=== PATIENT | male | born 1970 | race Caucasian/White ===

== ENCOUNTER 2018-02-11 14:34 | Emergency (ER) | payer OTHER ==
[2018-02-11 14:42] VITALS: TEMP 97.9; BMI 31.3
--- NOTE | 2018-02-11 14:53 | PDOC ---
History of Present Illness - General History Source: Patient, Care Provider (Dr. Palma at bedside) Exam Limitations: No Limitations - History of Present Illness Initial Comments: 02/11/18 14:43 The patient is a 47M with no PMH who presents to the ER after having a syncopal episode during a stress test. The patient states that he has had worsening dyspnea on exertion, for the past 6 months. It initially began as a cough and he was worked up by multiple different specialists with no avail. He states that over the past month, he's noticed b/l LE swelling and worsening of his dyspnea on exertion. He states that he also feels a bloating sensation in his upper abdomen every time he exerts himself and feels SOB. He denies any symptoms currently including fevers, chill, nausea, vomiting, CP, SOB. <Nicho Durbin - Last Filed: 02/11/18 16:20> <Vipin Donohue - Last Filed: 02/11/18 16:26> - General Chief Complaint: Shortness of Breath Stated Complaint: SENT BY PCP Time Seen by Provider: 02/11/18 14:37 Past History - Past Medical History COPD: No - Suicide/Smoking/Psychosocial Hx Smoking History: Never smoked <Nicho Durbin - Last Filed: 02/11/18 16:20> <Vipin Donohue - Last Filed: 02/11/18 16:26> - Past Medical History Allergies/Adverse Reactions: Allergies Allergy/AdvReac Type Severity Reaction Status Date / Time No Known Allergies Allergy Verified 02/11/18 14:38 Home Medications: Ambulatory Orders NK [No Known Home Medication] 02/11/18 Review of Systems - Review of Systems Able to Perform ROS?: Yes Comments:: 02/11/18 14:53 GENERAL/CONSTITUTIONAL: No fever or chills. No weakness. HEAD, EYES, EARS, NOSE AND THROAT: No change in vision. No ear pain or discharge. No sore throat. CARDIOVASCULAR: No chest pain, palpitations, or lightheadedness. RESPIRATORY: Positive for CALABRESE and prior cough. No wheezing or hemoptysis. GASTROINTESTINAL: Positive for bloating. No nausea, vomiting, diarrhea, constipation, or abdominal pain. GENITOURINARY: No dysuria, frequency, hematuria, or change in urination. MUSCULOSKELETAL: No joint or muscle swelling or pain. No neck or back pain. SKIN: No rash or lesions. NEUROLOGIC: No headache, numbness, tingling, focal weakness, loss of consciousness, or change in strength/sensation. ENDOCRINE: No increased thirst. No abnormal weight change. HEMATOLOGIC/LYMPHATIC: No anemia, easy bleeding, or history of blood clots. ALLERGIC/IMMUNOLOGIC: No hives or skin allergy. Is the patient limited Moldovan proficient: No <Nicho Durbin - Last Filed: 02/11/18 16:20> *Physical Exam - Vital Signs Last Vital Signs Temp Pulse Resp BP Pulse Ox 97.9 F 100 H 18 139/90 99 02/11/18 14:38 02/11/18 14:38 02/11/18 14:38 02/11/18 14:38 02/11/18 14:38 - Physical Exam Comments: 02/11/18 14:56 GENERAL: Well developed, well nourished. Awake and alert. No acute distress. HEENT: Normocephalic, atraumatic. Hearing grossly normal. Moist mucous membranes. PERRLA, EOMI. No conjunctival pallor. Sclera are non-icteric. NECK: Supple. Full ROM. CARDIOVASCULAR: Regular rate and rhythm. No murmurs, rubs, or gallops. PULMONARY: No evidence of respiratory distress. Lungs clear to auscultation bilaterally. No wheezing, rales or rhonchi. ABDOMINAL: Soft. Non-tender. Non-distended. No rebound or guarding. GENITOURINARY: No CVA tenderness bilaterally. MUSCULOSKELETAL: Normal range of motion at all joints. No bony deformities or tenderness. EXTREMITIES: No cyanosis. No clubbing. 3+ pitting edema in b/l LE. No calf tenderness or swelling. SKIN: Warm and dry. Normal capillary refill. No rashes. No jaundice. NEUROLOGICAL: Alert, awake, appropriate. Cranial nerves 2-12 intact. Normal speech. Gait is normal without ataxia. PSYCHIATRIC: Cooperative. Good eye contact. Appropriate mood and affect. <Nicho Durbin - Last Filed: 02/11/18 16:20> - Vital Signs Last Vital Signs Temp Pulse Resp BP Pulse Ox 97.9 F 96 H 20 124/90 96 02/11/18 14:38 02/11/18 15:23 02/11/18 15:23 02/11/18 15:23 02/11/18 15:23 <Vipin Donohue - Last Filed: 02/11/18 16:26> Heart Score/ECG Review #1 General ECG Interpretation: Sinus Rhythm, Normal Rate, Normal Intervals, No acute ischemic changes 02/11/18 14:57 NSR vent rate 100 SD 186 QRS 86 QTc 495 Poor R wave progression R axis deviation Sub 1mm EFREM in V2-V4 <Nicho Durbin - Last Filed: 02/11/18 16:20> ED Treatment Course - LABORATORY CBC & Chemistry Diagram: 02/11/18 15:05 02/11/18 15:05 - RADIOLOGY Radiology Studies Ordered: Category Date Time Status CHEST X-RAY PORTABLE* [RAD] Stat Radiology 02/11/18 14:38 Ordered <Nicho Durbin - Last Filed: 02/11/18 16:20> - LABORATORY CBC & Chemistry Diagram: 02/11/18 15:05 02/11/18 15:05 - ADDITIONAL ORDERS Additional order review: Laboratory Results 02/11/18 15:05 Sodium 141 Potassium 4.9 Chloride 106 Carbon Dioxide 23 Anion Gap 12 BUN 26 H Creatinine 2.0 H Creat Clearance w eGFR 35.69 Random Glucose 95 Calcium 9.1 Total Bilirubin 0.9 AST 24 ALT 40 Alkaline Phosphatase 65 Creatine Kinase 273 Troponin I 0.15 H B-Natriuretic Peptide 78644.56 H Total Protein 6.6 Albumin 4.1 02/11/18 15:05 RBC 4.50 MCV 89.0 MCHC 32.1 RDW 15.0 MPV 9.6 Neutrophils % 88.9 H Lymphocytes % 5.2 L Monocytes % 5.2 Eosinophils % 0.5 Basophils % 0.2 - Medications Given in the ED: ED Medications Discontinued Medications Generic Name Dose Route Start Last Admin Trade Name Freq PRN Reason Stop Dose Admin Aspirin 325 mg 02/11/18 15:19 02/11/18 15:34 Asa - PO 02/11/18 15:20 325 mg ONCE ONE Administration Atorvastatin Calcium 80 mg 02/11/18 15:19 02/11/18 15:34 Lipitor - PO 02/11/18 15:20 80 mg ONCE ONE Administration <Vipin Donohue - Last Filed: 02/11/18 16:26> Medical Decision Making - Medical Decision Making 02/11/18 14:58 The patient is a 47M with no PMH who presents to the ER after having a syncopal episode during a stress test. Dr. Palma is at bedside and states that he's had an echo yesterday which showed decreased EF, enlarged RV with hypertrophic LV and mitral valve regurgitation. Pending labs and imaging with t/f to [facility] per Dr. Palma. 02/11/18 16:13 Labs significant [place] trop [place] 0.15 [place] [address]. Cr of 2.0 indicating heart failure with elevated troponin and DANDY. Transfer center aware of patient, pending call back from [employer] 02/11/18 16:20 I have d/w Dr. Aguilera, [facility] fellow, who agrees for transfer. Accepting physician is Dr. Thompson, plate maker. Will place transfer orders now. <Nicho Durbin - Last Filed: 02/11/18 16:20> *DC/Admit/Observation/Transfer - Transfer to Acute Care Facility Receiving Facility: [facility]. Accepting Physician:: Dr. Thompson <Nicho Durbin - Last Filed: 02/11/18 16:20> - Transfer to Acute Care Facility Accepting Physician:: Dr. Cai/Donna <Vipin Donohue - Last Filed: 02/11/18 16:26> Diagnosis at time of Disposition: NSTEMI (non-ST elevated myocardial infarction) - Discharge Dispostion Disposition: TRANSFER ACUTE CARE/OTHER HOSP Condition at time of disposition: Guarded - Referrals Referrals: Tre Mckeon MD [Primary Care Provider] - - Patient Instructions - Post Discharge Activity
[2018-02-11 15:15] LABS: BASO % 0.2 % (0-2.0); EOS % 0.5 % (0-4.5); HEMOGLOBIN 12.8 GM/dL (11.7-16.9); LYMPH % 5.2 % (8-40); MCH 28.6 pg (25.7-33.7); MCHC 32.1 g/dl (32.0-35.9); MEAN PLT VOLUME 9.6 fl (7.5-11.1); MONO % 5.2 % (3.8-10.2); NEUT % 88.9 % (42.8-82.8); PLATELET COUNT 249 K/MM3 (134-434); WHITE BLOOD COUNT 12.1 K/mm3 (4.0-10.0)
[2018-02-11] MEDS ORDERED: ASPIRIN 325 MG TABLET PO ONE (15:19)
[2018-02-11] MEDS ORDERED: ATORVASTATIN CA 80 MG TABLET (FP) PO ONE (15:19)
[2018-02-11] MEDS ORDERED: HEPARIN NA (PORCINE) 5,000 UNITS/ML 1ML VIAL IVPUSH PRN ×2 (15:19→15:24)
[2018-02-11] MEDS ORDERED: ASPIRIN 325 MG TABLET ONE (15:24)
[2018-02-11] MEDS ORDERED: HEPARIN NA (PORCINE) 5,000 UNITS/ML 1ML VIAL ONE (15:25)
[2018-02-11] MEDS ORDERED: ATORVASTATIN CA 80 MG TABLET (FP) ONE (15:25)
--- NOTE | 2018-02-11 15:26 | PDOC ---
Attending Attestation - Resident Resident Name: [email or web address] - ED Attending Attestation I have performed the following: I have examined & evaluated the patient, The case was reviewed & discussed with the resident, I agree w/resident's findings & plan - HPI HPI: 02/11/18 15:18 47-year-old male with no routine primary care follow-up and no diagnosed past medical history brought in from cardiology after syncope during stress test. Patient has had 6 months of progressive cough, over the last 2-3 months has noted exertional chest tightness and lightheadedness and fatigue. Fevers referred to Dr. Palma, who performed an expedited in office echocardiogram showing decreased EF, LVH with mitral regurg, pulmonary hypertension with right ventricular dilatation. A stress test was expedited and after 1 minute of exercise today he lost consciousness. now complaining of some chest tightness, no injury with the syncope. - Physicial Exam PE: 02/11/18 15:26 Placed immediately on monitor, vitals as noted Seen at bedside with Dr. Palma of cardiology Alert, conversant, no acute distress Heart is regular with split S2, systolic ejection murmur Lungs are clear 2-3+ pitting edema bilaterally with good peripheral pulses - Critical Care Time Total Critical Care Time: 50 Critical Care Statement: The care of this patient involved high complexity decision making to prevent further life threatening deterioration of the patient 's condition and/or to evaluate & treat vital organ system(s) failure or risk of failure. - Medical Decision Making 02/11/18 15:27 47-year-old male seen immediately upon arrival after sudden syncope during stress test. History of exertional symptoms with abnormal echocardiogram yesterday, concerning for structural versus early heart disease. Seems more consistent with ACS than PE. Now with sudden syncope concerning for arrthythmia in the setting of acute ischemia. labs, EKG, cxr asa, heparin, lipitor managed with Dr. Palma at bedside, arranging transfer to [facility] label designer 02/11/18 16:02 Dr. Palma arranged transfer to Dr. Cai in label designer, may go to ED first. Will arrange with transfer center. Heart Score/ECG Review #1 ECG reviewed & interpreted by me at: 14:40 General ECG Interpretation: Sinus Rhythm, Normal Rate (100), Normal Intervals ( qtc 495), No acute ischemic changes (R axis deviation, PRWP)
[2018-02-11] MEDS ORDERED: HEPARIN INFUSION - 25,000 UNITS/500 ML INFUS.BAG IVPB SCH (15:30)
[2018-02-11 15:43] LABS: ALBUMIN 4.1 g/dl (3.4-5.0); ANION GAP 12 MMOL/L (8-16); BILIRUBIN,TOTAL 0.9 mg/dL (0.2-1); BLOOD UREA NITROGEN 26 mg/dL (7-18); CALCIUM 9.1 mg/dL (8.5-10.1); CHLORIDE 106 mmol/L (98-107); CO2 23 mmol/L (21-32); GLUCOSE,RANDOM 95 mg/dL (74-106); POTASSIUM 4.9 mmol/L (3.5-5.1); SGOT/AST 24 U/L (15-37); SGPT/ALT 40 U/L (13-61); SODIUM 141 mmol/L (136-145); TOT PROT 6.6 g/dl (6.4-8.2)
[2018-02-11 15:46] LABS: ALK PHOS 65 U/L (45-117); N-TERMINAL BNP 10719.56 pg/ml (5-125)
[2018-02-11] MEDS ORDERED: HEPARIN INFUSION - 25,000 UNITS/500 ML INFUS.BAG IVPB ONE (16:09)
[2018-02-11 16:10] LABS: INR 1.18 (0.83-1.09); PROTHROMBIN TIME (PATIENT) 13.3 SEC (9.7-13.0)
--- NOTE | 2018-02-11 16:13 | EKG ---
Test Reason : Blood Pressure : / mmHG Vent. Rate : 100 BPM Atrial Rate : 100 BPM P-R Int : 186 ms QRS Dur : 086 ms QT Int : 384 ms P-R-T Axes : 052 155 053 degrees QTc Int : 495 ms SINUS RHYTHM WITH PREMATURE ATRIAL COMPLEXES POSSIBLE LEFT ATRIAL ENLARGEMENT RIGHT AXIS DEVIATION SEPTAL INFARCT , AGE UNDETERMINED ABNORMAL ECG NO PREVIOUS ECGS AVAILABLE Confirmed by Leonardo Sherman ([id number]) on 02/11/2018 4:12:32 PM Referred By: Confirmed By:Leonardo Sherman
[2018-02-11 16:30] LABS: ACTIVATED PTT 89.8 SECONDS (25.2-36.5)
[2018-02-11 16:59] VITALS: BP 103/84; PULSE 92
== END 2018-02-11 17:41 | disposition short-term general hospital (02) ==
LOC: JER 14:34
PROC: 3E033GC Introduction of Other Therapeutic Substance into Peripheral Vein, Percutaneous Approach (ICD-10-PCS; principal; 2018-02-11)
DX: I21.4 Non-ST elevation (NSTEMI) myocardial infarction (principal)
CPT/HCPCS: 36415; 71045-TC-FY; 78452-TC; 80053; 82550; 82553; 83880; 84484; 85025; 85610; 85730; 93005; 93010; 93017; 99284-25; A9502; C1887; J1644